=== PATIENT | female | born 1950 | race Caucasian/White ===

== ENCOUNTER 2020-02-11 12:30 | Outpatient (RCR) | payer MEDICARE, OTHER, SELFPAY ==
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
--- NOTE | 2020-02-11 12:54 | PTOPEVAL ---
PHYSICAL THERAPY DISCHARGE SUMMARY Thank you for referring Nancy to [facility]. Nancy attended 8 treatments in PT and is now ready for transition to HEP. I agree with Nancy's discharge from physical therapy. Referring Physician Date Admitting Provider: Attending Provider: Berto Whitfield, Referring Provider: *PT Outpatient Evaluation Start: 01/16/20 14:40 Freq: Status: Active Protocol: Document 02/11/20 11:55 MACIE (Rec: 02/11/20 12:53 MACIE [email or web address]) Therapy Assessment Status Assessment Status Assessment Status Discharge Evaluation Information Problem Subjective Information Nancy states that she has Query Text:As Reported By Patient/ begun to return to previous Family work out routine - cutting down on sets but able to use usual resistance. Continues with HEP from PT as well. Will still have c/o's discomfort with prolonged standing. Still taking meloxicam. Pain Assessment Timing of Pain Assessment Timing of Pain Assessment Assessment Pain Scale Pain Scale Used Numeric (1 - 10) Self Report Pain Assessment Posterior Back Reported Pain Level 0 Current Pain Intensity 0 Lowest Pain Intensity 0 Greatest Pain Intensity 4 Pain Score Pain Score 0: Self Report Cervical and Lumbar ROM Lumbar ROM Lumbar Flexion (0-90) 45 Query Text:Active in Degrees Lumbar Extension (0-40) 15 Query Text:Active in Degrees Lumbar Lateral Flexion Right (0-40) 10 Query Text:Active in Degrees Lumbar Lateral Flexion Left (0-40) 10 Query Text:Active in Degrees Lumbar Comments pelvis/sacrum level in standing - good SIJ mobility Palpation Assessment Palpation Palpation No tenderness with P-A mob to sacrum, mild discomfort with lumbar spine L5-3. Still mild increase with lumbar paraspinal muscle tissue tension. PT Clinical Summary Clinical Summary Protocol: PTEVCODE Clinical Summary Nancy has progressed well in PT. She has been able to return to regular exercise program - slowly resuming previous exercise level. She will still have increase in back discomfort with prolonged
== END 2020-03-05 14:56 | disposition home or self-care (01) ==
LOC: ANHHIPT 12:30
PROVIDERS: PCP Internal Medicine; Visit Provider Internal Medicine
DX: M54.5 Low back pain (principal); R10.2 Pelvic and perineal pain
CPT/HCPCS: 97110; 97140; 97161

== ENCOUNTER → 2021-04-27 02:01 | Outpatient (CLI) | payer MEDICARE, OTHER, SELFPAY ==
[2021-04-27 17:04] LABS: SARS-CoV-2 RNA PCR Negative
== END ==
PROVIDERS: PCP Internal Medicine; Visit Provider Internal Medicine Gastroenterology
DX: Z01.812 Encounter for preprocedural laboratory examination (principal); Z20.822 Contact with and (suspected) exposure to COVID-19
CPT/HCPCS: C9803; U0003; U0005

== ENCOUNTER 2021-04-30 00:47 | Day surgery (SDC) | payer MEDICARE, OTHER, SELFPAY ==
[2021-04-16 14:23] VITALS: BMI 24.3
[2021-04-30 09:28] VITALS: BP 110/79; PULSE 61; RESP 16; TEMP 36.4; O2SAT 100; BMI 23.3
[2021-04-30] MEDS: LACTATED RINGERS 1,000 ML 150 ML IV CONT (09:35)
--- NOTE | 2021-04-30 09:48 | P.CONGI_ITS ---
GI Consult Note Consult date/time: 04/30/21 09:48 HPI: Reason for visit EGD and colonoscopy. This very pleasant lady seen in consultation request of the primary physician. Impression: GERD with breakthrough symptoms. Chronic idiopathic constipation and IBS with constipation. She does have occult blood in stool. Evaluate for underlying inflammatory neoplastic disease. HLD. He scan osteoporosis ANOOP. Recommendation: EGD and colonoscopy. History: This very pleasant lady has a history of reflux disease. She was taken omeprazole 20 b.i.d.. She was switched and Toprol is all is having further symptoms. Dysphagia or odynophagia tonight. Patient does have chronic constipation. She was found to have occult blood in stool. She is here for colonoscopy and EGD. Physical examination: General: very pleasant patient in no acute distress. HEENT: Head was normocephalic sclerae is clear mouth without masses neck was supple. Heart: Rate rhythm regular without S3 or S4. Lungs: CTA. Abdomen: Soft with no guarding or rigidity. Bowel sounds were active. Neurologic: Cranial nerves 2 through 12 intact. No focal defects. No clonus. Musculoskeletal system: Revealed no joint tenderness or swelling no muscle atrophy. Extremities: Reveal no significant edema. Skin: Warm and dry with normal turgor. Mental status: intact. Patient is alert and oriented. Review of Systems Review of Systems: All systems reviewed & are unremarkable except as noted in HPI and below PMFSH Social History Social History Additional smoking assessment comments: Social Smoker Alcohol use details: Socially Living arrangements: alone Gender identity (if verbalized by the patient): Female Meds Home Medications and Allergies Home Medications Medication Instructions Recorded Confirmed Type abaloparatide [Tymlos] 80 mcg SUBCUT DAILY 04/16/21 04/30/21 History aspirin 81 mg PO DAILY 04/16/21 04/30/21 History biotin 10,000 mcg PO DAILY 04/16/21 04/30/21 History calcium carbonate-vitamin D3 1 tablet PO DAILY 04/16/21 04/30/21 History [Calcium+D] ezetimibe 10 mg DAILY 04/16/21 04/30/21 History famotidine [Pepcid AC] 20 mg PO PRN PRN 04/16/21 04/16/21 History aiirjant-ldd-scco-FA-lutein 1 tablet PO DAILY 04/16/21 04/30/21 History [Centrum Silver Women] omega-3 fatty acids [[place] 3] 1,000 mg PO BID 04/16/21 04/30/21 History ondansetron 4 mg PO PRN 04/16/21 History pantoprazole 40 mg PO BID 04/16/21 04/30/21 History Allergies Allergy/AdvReac Type Severity Reaction Status Date / Time meperidine [From Demerol] AdvReac Nausea Verified 04/30/21 09:18 Tsprxci-Gdy-Dco Reductase AdvReac Other Verified 04/30/21 09:18 Inhibitor Vital Signs Vital Signs - 24 hr 04/30/21 09:28 Temperature 36.4 C L Pulse Rate 61 Respiratory Rate 16 Blood Pressure 110/79 Pulse Oximetry 100
--- NOTE | 2021-04-30 10:21 | WPDANESEPPF ---
Anes - Initial Pre Proc Eval Procedure: Operation Date: 04/30/21 10:30 Proposed Procedures p Esophagogastroduodenoscopy & Colonoscopy - Casey Arizmendi DO Date/Time: 04/30/21 10:21 Surgeon: Casey Arizmendi DO Pre Op Diagnosis: hematochezia,GERD Patient Data Age: 70 Gender: F Height: 4 ft 9 in Weight: 48.9 kg Last Vital Signs Temp 97.5 F L 04/30/21 09:28 Pulse 61 04/30/21 09:28 Resp 16 04/30/21 09:28 BP 110/79 04/30/21 09:28 Pulse Ox 100 04/30/21 09:28 Allergies Allergy/AdvReac Type Severity Reaction Status Date / Time meperidine [From Demerol] AdvReac Nausea Verified 04/30/21 09:18 Qwhoaxz-Sco-Tfp Reductase AdvReac Other Verified 04/30/21 09:18 Inhibitor Home Medications Medication Instructions Recorded Confirmed Type abaloparatide [Tymlos] 80 mcg SUBCUT DAILY 04/16/21 04/30/21 History aspirin 81 mg PO DAILY 04/16/21 04/30/21 History biotin 10,000 mcg PO DAILY 04/16/21 04/30/21 History calcium carbonate-vitamin D3 1 tablet PO DAILY 04/16/21 04/30/21 History [Calcium+D] ezetimibe 10 mg DAILY 04/16/21 04/30/21 History famotidine [Pepcid AC] 20 mg PO PRN PRN 04/16/21 04/16/21 History nztpbnfu-ybg-zxmr-FA-lutein 1 tablet PO DAILY 04/16/21 04/30/21 History [Centrum Silver Women] omega-3 fatty acids [[place] 3] 1,000 mg PO BID 04/16/21 04/30/21 History ondansetron 4 mg PO PRN 04/16/21 History pantoprazole 40 mg PO BID 04/16/21 04/30/21 History Patient hx anesthesia problems: none Family hx anesthesia problems: none PMFSH Past Medical History Medical History (Updated 04/30/21 @ 10:20 by Anshu Ba MD) GERD (gastroesophageal reflux disease) Hyperlipidemia ANOOP (obstructive sleep apnea) Seizure related to hyponatremia Social History Social History Additional smoking assessment comments: Social Smoker Alcohol use details: Socially Living arrangements: alone Gender identity (if verbalized by the patient): Female Anes - Eval Final PreProcedure Day of Procedure 04/30/21 10:21 Patient weight: normal Heart: regular rate and rhythm Lungs: clear to auscultation Airway: Mallampati scale class II Neurological: alert and oriented Last oral intake: >/= 8 hours ASA classification: III Emergent: no Anesthetic plan: proceed Anesthesia type and monitoring: general GIVS and standard monitoring Informed Consent: The patient's anesthetic plan and its attendant risks and benefits were discussed with the patient/family/POA. Questions were solicited and answers provided to the satisfaction of the patient/family/POA.
[2021-04-30 11:20] VITALS: BP 80/49; PULSE 78; RESP 19; O2SAT 93
[2021-04-30 11:30] VITALS: BP 82/53; PULSE 68; RESP 15; O2SAT 93
[2021-04-30 11:40] VITALS: BP 90/52; PULSE 70; RESP 15; O2SAT 98
== END 2021-04-30 11:53 | disposition home or self-care (01) ==
PROVIDERS: PCP Internal Medicine; Visit Provider Internal Medicine Gastroenterology
PROC: 0DJ08ZZ Inspection of Upper Intestinal Tract, Via Natural or Artificial Opening Endoscopic (ICD-10-PCS; CPT 43235; principal; 2021-04-30 10:30)
DX: K59.09 Other constipation (principal); K58.1 Irritable bowel syndrome with constipation; D12.4 Benign neoplasm of descending colon; D12.2 Benign neoplasm of ascending colon; K62.5 Hemorrhage of anus and rectum; K63.89 Other specified diseases of intestine; K57.30 Diverticulosis of large intestine without perforation or abscess without bleeding; K64.8 Other hemorrhoids; K22.70 Barrett's esophagus without dysplasia; K44.9 Diaphragmatic hernia without obstruction or gangrene; K21.9 Gastro-esophageal reflux disease without esophagitis; E78.5 Hyperlipidemia, unspecified; G47.33 Obstructive sleep apnea (adult) (pediatric); M81.0 Age-related osteoporosis without current pathological fracture
CPT/HCPCS: 45380; 43239; 87081; 88305; 88313; J2704; J7120